=== PATIENT | male | born 1940 | race Caucasian/White ===

== ENCOUNTER 2025-03-07 11:04 | Emergency (ER) | payer OTHER, SELFPAY ==
[2025-03-07 11:16] VITALS: BP 122/57
[2025-03-07 11:50] VITALS: BMI 26.0
--- NOTE | 2025-03-07 11:57 | EDRN ---
Grover Davila PA in room w/ pt and spouse and family member at this time.
[2025-03-07 12:14] VITALS: BP 152/70
[2025-03-07] MEDS: TORADOL 30 MG IM (12:22)
--- NOTE | 2025-03-07 12:45 | ED.GENMED ---
History of Present Illness
General
Chief Complaint: Musculo-Skeletal Complaint
Time Seen by Provider: 03/07/25 11:39
History of Present Illness
History of Present Illness:
84-year-old male presents to the emergency department for evaluation of nontraumatic right knee pain, has been ongoing for the past 2 to 3 days. No recent falls. Unable to bear weight secondary to discomfort. No fevers or chills
Review of Systems
Review of Systems
Allergies reviewed?: Yes
All Other Systems: ROS reviewed and negative except as documented in HPI and ROS
Phy Exam
Physical Exam
Physical Exam:
GEN: Well appearing, NAD, WDWN
HEENT: Oral mucosa moist, no scleral icterus
Cardiac: Regular rate
Lung: No respiratory distress, no tachypnea
MSK: Diffuse soft tissue swelling at the right knee with valgus deformity, range of motion elicits pain, no crepitus
Skin: Good color, no pallor or jaundice, no rashes
Neuro: AO x3, moves all extremities freely
Psych: Calm, cooperative
Course
Orders/Labs/Results
Orders:
Orders
03/07/25 11:23
Knee, Right 4 or More Views [CR Knee- Right 4 Or More View*] Urgent
Comment:
Reason For Exam: pain and swelling
03/07/25 12:17
Ketorolac [Toradol] 30 mg IM NOW STA
Vital Signs
Initial and Last Documented VS:
Initial Vital Signs
Temp Pulse Resp BP Pulse Ox
98.9 F 60 20 122/57 96
03/07/25 11:16 03/07/25 11:16 03/07/25 11:16 03/07/25 11:16 03/07/25 11:16
Last Documented Vital Signs
Temp Pulse Resp BP Pulse Ox
98.9 F 59 16 152/70 95
03/07/25 11:16 03/07/25 12:14 03/07/25 12:14 03/07/25 12:14 03/07/25 12:46
MDM/Problems Addressed
MDM/Problems Addressed:
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 Will start NSAIDs and refer to orthopedics as an outpatient, encouraged to
purchase a walker for ambulatory assistance at home
*Pulse Oximetry
SaO2: 95
Oxygen Mode of Delivery: Room air
*Critical Care Note
Total Time (30-74mins, 75-104mins- exclusive of procedures): Not Applicable
ED Attending Note
-
Portions of this chart may have been created with voice recognition software.� Occasional wrong word or��sound alike� substitutions may have occurred due to the inherent limitations of voice recognition software.
Discharge Plan
Departure
Patient Disposition: Home (Routine Discharge)
Date of Disposition: 03/07/25
Time of Disposition: 12:45
Patient with high blood pressure during this ER visit?: No
Discharge Problem:
Knee pain, right
Instructions: Knee Pain (DC)
Prescriptions:
New
meloxicam 7.5 mg tablet
7.5 mg PO DAILY Qty: 14 0RF
Referrals:
Brandie Chris, [Family Provider, Family Practice]
Interventions
Interventions:
*Risk Screen - Suicide Last Done: 03/07/25 11:16
*General Assessment Last Done: 03/07/25 11:51
*Neglect/Abuse Screening Last Done: 03/07/25 11:16
*ED- Fall Risk Assessment Last Done: 03/07/25 11:51
*ED COVID-19 Vaccine History Last Done: 03/07/25 11:51
*Nursing Disposition Last Done: 03/07/25 13:03
ED-Musculoskeletal Assessment Last Done: 03/07/25 11:51
Discharge Date and Time
Discharge Date/Time: 03/07/25 13:04
Print Language: SAMMARINESE
--- NOTE | 2025-03-07 12:50 | EDRN ---
Grover Davila PA in to see pt and spouse and gave pt discharge instructions at this time.
--- NOTE | 2025-03-07 13:02 | EDRN ---
Pt needed assist of 2 to stand when getting off stretcher and could barely move w/ assist but when a walker was brought to pt he could ambulate w/ no R knee wt baring w/ barely any assist but very slowly.
== END 2025-03-07 13:04 | disposition home or self-care (01) ==
LOC: EMR 11:04
PROVIDERS: EMERGENCY PHYSICIAN Emergency Medicine; FAMILY PHYSICIAN Family Medicine
DX: M25.561 Pain in right knee (principal)
CPT/HCPCS: 99284; 96372; 73564